=== PATIENT | female | born 1975 | race American Indian/Alaskan Native ===

== ENCOUNTER 2017-06-24 10:13 | Emergency (ER) | payer SELFPAY ==
[2017-06-24 10:18] VITALS: RESP 20; O2SAT 99
[2017-06-24] MEDS ORDERED: DiphenhydrAMINE 50 mg/ml Inj IM STA (11:47)
[2017-06-24] MEDS ORDERED: DiphenhydrAMINE 50 mg/ml Inj ONE ×2 (11:53→13:12)
--- NOTE | 2017-06-24 12:31 | C.PDOC ---
History Of Present Illness 41 year old female, whose PMHx includes Sickle Cell Disease, presents to the ED for evaluation of generalized body aches which began last night. Patient describes her symptoms as "sharp pains everywhere." She states symptoms worsened today and presents to the ED for further evaluation. She denies fever, chills, cough, chest pain, SOB, and vomiting. Time Seen by Provider: 06/24/17 11:15 Chief Complaint (Nursing): Pain, Chronic History Per: Patient History/Exam Limitations: no limitations Onset/Duration Of Symptoms: Hrs Current Symptoms Are (Timing): Worse Severity: Moderate Pain Scale Rating Of: 10 Additional History Per: Patient Past Medical History Reviewed: Historical Data, Nursing Documentation, Vital Signs Vital Signs: Last Vital Signs Temp 98.2 F 06/24/17 14:28 Pulse 77 06/24/17 14:28 Resp 20 06/24/17 14:28 BP 121/74 06/24/17 14:28 Pulse Ox 99 06/26/17 16:36 - Medical History PMH: No Chronic Diseases, Sickle Cell Disease Surgical History: No Surg Hx Family History: States: Unknown Family Hx - Social History Hx Alcohol Use: No Hx Substance Use: No Review Of Systems Except As Marked, All Systems Reviewed And Found Negative. Constitutional: Negative for: Fever, Chills Gastrointestinal: Negative for: Vomiting Musculoskeletal: Positive for: Other (generalized body aches) Physical Exam - Physical Exam Appears: Non-toxic, No Acute Distress Skin: Normal Color, Warm, Dry, No Rash Head: Normacephalic Eye(s): bilateral: Normal Inspection Oral Mucosa: Moist Neck: Normal ROM, Supple Chest: Symmetrical, No Deformity, No Tenderness Cardiovascular: Rhythm Regular, No Friction Rub, No Murmur Respiratory: Normal Breath Sounds, No Rales, No Rhonchi, No Wheezing Gastrointestinal/Abdominal: Normal Exam, Soft, No Tenderness Back: No CVA Tenderness Extremity: Normal ROM, Capillary Refill (less than 2 seconds ) Neurological/Psych: Oriented x3, Normal Speech, Normal Cognition, Normal Motor Gait: Steady ED Course And Treatment O2 Sat by Pulse Oximetry: 99 (on RA) Pulse Ox Interpretation: Normal Medical Decision Making Medical Decision Making: Progress: Benadryl IM, Benadryl PO, Dilaudid IM, Dilaudid PO administered. On the first re-exam, the patient reports mild improvement of symptoms but still has pain. PAtient is refusing IV access and is requesting IM medications. Patient was offered PO medications as for the PO protocol for sickle cell patient but patient refused. Another Im dose given. Patient is exhibiting drug seeking behavior and is refusing admission for sickle cell crisis. On second re-exam, the patient reports improvement of symptoms. Lungs are CTA, heart is RRR, abdomen is soft, non-tender and tolerating PO well. Ambulatory in the ED with steady gait. Follow up with the medical doctor within 1-2 days. Return if worsened. Disposition - Disposition Referrals: [facility] at [facility] [Outside] Disposition: HOME/ ROUTINE Disposition Time: 13:28 Condition: GOOD Additional Instructions: Follow up with the medical doctor within 1-2 days. Return if worsened. Prescriptions: oxyCODONE/Acetaminophen [Percocet 5/325 mg Tab] 1 tab PO QID PRN #15 tab PRN Reason: Pain Instructions: Chronic Pain Forms: [employer] [facility] ([place]inese) - Clinical Impression Clinical Impression: Chronic pain - PA / WEB APPLICATIONS DEVELOPER / Resident Statement MD/DO has reviewed & agrees with the documentation as recorded. - Scribe Statement The provider has reviewed the documentation as recorded by the Scribe (Sarah Bangura) All medical record entries made by the Scribe were at my direction and personally dictated by me. I have reviewed the chart and agree that the record accurately reflects my personal performance of the history, physical exam, medical decision making, and the department course for this patient. I have also personally directed, reviewed, and agree with the discharge instructions and disposition.
[2017-06-24] MEDS ORDERED: Oxycodone/Acetaminophen 5/325 mg Tab PO STA (14:25)
[2017-06-24 14:29] VITALS: BP 121/74; PULSE 77; TEMP 98.2
[2017-06-24] MEDS ORDERED: DiphenhydrAMINE 50 mg/ml Inj IVP STA (14:49)
== END 2017-06-24 14:30 | disposition home or self-care (01) ==
LOC: C.ER 10:13
DX: G89.29 Other chronic pain (principal)
CPT/HCPCS: 96372; 99285; J1170; J1200

== ENCOUNTER 2017-07-06 09:06 | Emergency (ER) | payer SELFPAY ==
[2017-07-06 09:11] VITALS: BMI 22.3
[2017-07-06 10:33] LABS: HCG,QUALITATIVE URINE NEGATIVE (NEGATIVE)
[2017-07-06 10:36] LABS: SQUAMOUS EPITHIAL 9 /hpf (0-5); URINE BILIRUBIN NEGATIVE (NEGATIVE); URINE BLOOD 1+ (NEGATIVE); URINE CLARITY Hazy (Clear); URINE COLOR Yellow (YELLOW); URINE GLUCOSE (UA) NORMAL (Normal); URINE LEUKOCYTE ESTERASE NEG Leu/uL (Negative); URINE PROTEIN NEGATIVE (NEGATIVE); URINE UROBILINOGEN NORMAL mg/dL (0.2-1.0)
[2017-07-06 10:58] LABS: BARBITURATES, UR NEGATIVE (NEGATIVE); BENZODIAZEPINES, UR NEGATIVE (NEGATIVE); PHENCYCLIDINE, UR NEGATIVE (NEGATIVE)
[2017-07-06 10:59] LABS: BASO # 0.1 K/uL (0.0-0.2); BASO % 0.9 % (0.0-2.0); EOS # 0.2 K/uL (0.0-0.7); EOS % 2.5 % (0.0-4.0); HEMOGLOBIN 9.9 g/dL (11.0-16.0); LYMPH # 1.4 K/uL (1.0-4.3); LYMPH % 18.9 % (20.0-40.0); MEAN CELL VOLUME 75.4 fL (81.0-99.0); MEAN CORPUSCULAR HEMOGLOBIN 25.2 pg (27.0-31.0); MEAN CORPUSCULAR HGB CONC 33.5 g/dL (33.0-37.0); MEAN PLATELET VOLUME 7.9 fL (7.2-11.7); MONO # 0.5 K/uL (0.0-0.8); MONO % 6.2 % (0.0-10.0); NEUT # 5.3 K/uL (1.8-7.0); NEUT % 71.5 % (50.0-75.0); NRBC % 0.1 % (0.0-2.0); RBC 3.91 Mil/uL (3.80-5.20); RED CELL DISTRIBUTION WIDTH 18.6 % (11.5-14.5); WHITE BLOOD COUNT 7.4 K/uL (4.8-10.8)
[2017-07-06 11:09] LABS: ALB/GLOB RATIO 1.4 (1.0-2.1); ALBUMIN 4.4 g/dL (3.5-5.0); ALT/SGPT 26 U/L (9-52); AST/SGOT 28 U/L (14-36); BLOOD UREA NITROGEN 17 mg/dL (7-17); CALCIUM 8.7 mg/dl (8.6-10.4); GFR AFRICAN-AMERICAN > 60; GFR NON-AFRICAN AMERICAN > 60
--- NOTE | 2017-07-06 11:25 | RAD ---
HISTORY: AICD COMPARISON: None available. TECHNIQUE: Chest, one view. FINDINGS: LUNGS: No focal consolidation. Please note that chest x-ray has limited sensitivity for the detection of pulmonary masses. PLEURA: No significant pleural effusion identified. No definite pneumothorax . CARDIOVASCULAR: Single lead left-sided AICD. Borderline cardiomegaly partially obscured. OSSEOUS STRUCTURES: No acute osseous abnormality identified. VISUALIZED UPPER ABDOMEN: Unremarkable. OTHER FINDINGS: None. IMPRESSION: Single lead left-sided AICD. Borderline cardiomegaly partially obscured.
[2017-07-06 11:33] VITALS: RESP 16
[2017-07-06 11:38] LABS: OPIATES, UR POSITIVE (NEGATIVE)
[2017-07-06 13:13] VITALS: BP 112/68; PULSE 92; TEMP 98.6; O2SAT 98
--- NOTE | 2017-07-06 14:44 | C.PDOC ---
Time Seen by Provider: 07/06/17 09:49 Chief Complaint (Nursing): Pain, Chronic History Per: Patient Onset/Duration Of Symptoms: Days (1) Current Symptoms Are (Timing): Still Present Severity: Severe Context: Sickle Cell disease Location: Generalized Quality: Pain Additional History Per: Prior Records Past Medical History Reviewed: Historical Data, Nursing Documentation, Vital Signs Vital Signs: Last Vital Signs Temp 98.6 F 07/06/17 13:12 Pulse 92 H 07/06/17 13:12 Resp 16 07/06/17 13:12 BP 112/68 07/06/17 13:12 Pulse Ox 98 07/06/17 13:12 - Medical History PMH: Sickle Cell Disease Surgical History: Pacemaker (AICD) Family History: States: Unknown Family Hx - Social History Hx Alcohol Use: No Hx Substance Use: No - Immunization History Hx Tetanus Toxoid Vaccination: No Hx Influenza Vaccination: No Hx Pneumococcal Vaccination: No Review Of Systems Except As Marked, All Systems Reviewed And Found Negative. Constitutional: Negative for: Fever Cardiovascular: Negative for: Chest Pain Respiratory: Negative for: Shortness of Breath, Hemoptysis Gastrointestinal: Negative for: Vomiting, Abdominal Pain Neurological: Negative for: Weakness, Numbness, Seizures, Altered Mental Status Physical Exam - Physical Exam Appears: Non-toxic, Chronically Ill Skin: Normal Color, Warm, Dry Head: Atraumatic, Normacephalic Eye(s): bilateral: PERRL, EOMI Neck: Normal ROM, Supple Cardiovascular: Rhythm Regular Respiratory: Normal Breath Sounds, No Accessory Muscle Use Gastrointestinal/Abdominal: Soft, No Tenderness, No Organomegaly, No Distention Back: No CVA Tenderness Extremity: Normal ROM, No Pedal Edema, No Calf Tenderness Neurological/Psych: Oriented x3, Normal Motor, Normal Sensation ED Course And Treatment - Laboratory Results Result Diagrams: 07/06/17 10:46 07/06/17 10:46 Urine POC: Negative O2 Sat by Pulse Oximetry: 98 Pulse Ox Interpretation: Normal - Radiology CXR: Viewed By Me, Read By Radiologist CXR Interpretation: Yes: No Acute Disease, Other (Single lead left-sided AICD. Borderline cardiomegaly partially obscured.) Progress Note: After 3 rounds on PO Dilaudid as per our protocol, pt is still in pain. Will admit. Progress - Interventions Interventions:: Observation, Oxygen - Medications Administered Oral: Antihistamine(H-1), Opiate - Data Reviewed Data Reviewed: Lab, Diagnostic imaging, Old records - Patient Status Patient status: Partially improved - Continuity of Care Discussed patient case with:: Patient, ED Nurse, On-call PMD-pt unassigned - Patient Plan Patient Plan: Admission Disposition Discussed With DrLei: Piter Grigsby Comment: He accepted pt on hospitalist service. Doctor Will See Patient In The: Hospital Counseled Patient/Family Regarding: Studies Performed, Diagnosis - Disposition Disposition: HOSPITALIZED Disposition Time: 14:45 Condition: STABLE - Clinical Impression Clinical Impression: Sickle cell pain crisis
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
== END 2017-07-06 16:00 | disposition home or self-care (01) ==
LOC: C.ER 09:06 → C.9E 14:46 → UNDOADMOB 14:46 → UNDODISOB 16:00
DX: Z76.5 Malingerer [conscious simulation] (principal); F11.90 Opioid use, unspecified, uncomplicated; D57.00 Hb-SS disease with crisis, unspecified; Z95.810 Presence of automatic (implantable) cardiac defibrillator; I42.9 Cardiomyopathy, unspecified
CPT/HCPCS: 71045; 80053; 81001; 83021; 83615; 84703; 85014; 85018; 85025; 85041; 85044; 85660; 86140; G0480